=== PATIENT | male | born 1960 | race Caucasian/White ===

== ENCOUNTER 2017-11-11 23:29 | Emergency (ER) | payer SELFPAY ==
[2017-11-11 23:30] VITALS: PULSE 62; RESP 15; TEMP 36.4; O2SAT 97; BMI 54.6
--- NOTE | 2017-11-11 23:36 | ED.RN ---
UNABLE TO OBTAIN BP IN TRIAGE DESPITE SWITCHING ARMS, AND CHANGING BP CUFFS. SUDHIR MELISSA INFORMED. PT TO HAVE MANUAL PRESSURE CHECKED IN ROOM.
[2017-11-11 23:39] VITALS: BP 204/90
--- NOTE | 2017-11-11 23:47 | EKG12_ITS ---
Test Reason : HTN Blood Pressure : / mmHG Vent. Rate : 053 BPM Atrial Rate : 053 BPM P-R Int : 214 ms QRS Dur : 102 ms QT Int : 408 ms P-R-T Axes : 045 -02 013 degrees QTc Int : 382 ms Sinus bradycardia with 1st degree A-V block Otherwise normal ECG Confirmed by SAI GARZA, AMBROSE ([id number]), film and video editor ISMAEL GARZA ([id number]) on 11/14/2017 3:07:36 PM Referred By: JANELL Confirmed By:AMBROSE GIBBS MD
--- NOTE | 2017-11-11 23:47 | ED.VISSUMM ---
- ER Visit Summary Date of Service: 11/11/17 Chief Complaint: Elevated blood pressure History of Present Illness: The patient is a 57 M history of hypertension states that for the last several days his blood pressures been running higher than normal. He denies any specific severe headaches or chest pain. He is on 3 different blood pressure medications. He does not smoke. He drives long distance truck. He was concerned because it was higher than what he would like it to be tonight anyone came and have it evaluated. Physical Examination: Well-appearing middle-age male. Initial blood pressures were 90. Otherwise vital signs are stable afebrile. Pulse ox 97% on room air no signs of hypoxia. He is in no distress. HEENT exam unremarkable. Neck nontender no JVD. Lungs clear to auscultation bilaterally. Heart regular rate and rhythm no murmur. Rate in the 60s. Abdomen is soft and nontender. He is morbidly obese. He is moving all 4 extremities. Calves nontender. No edema or cords. Neurologically is awake and alert without focal motor deficits. Test Results: EKG shows sinus bradycardia rate of 53 with a first-degree AV block. Unchanged from prior EKG. BMP normal. Normal renal function creatinine is 0.9. Emergency Department Course and Treatment: Repeat exam patient is doing well. Currently his blood pressure is 192/102. He will take an extra blood pressure medication when he goes home. He is to log his blood pressures twice daily. And follow-up with either his primary care physician or an area hide handler for working with them to get his blood pressure under control his medications adjusted. Treatment Plan: [] Disposition: Discharge Impression: Acute on chronic hypertension This note was generated with [employer] dictation software. It may contain incorrect words, spelling, and punctuation that were not noted in review of the chart prior to signing ED Disposition - Plan for ED Patient: Disposition: Home or Assisted Living Chief Complaint: Hypertension Instructions: ED Hypertension Conf Out Of Control Referrals: Laura Ritchie MD [Primary Care Provider] - 5-7 Days Kenan Ribeiro MD [STAFF PHYSICIAN] - 1-2 Weeks Additional Instructions: Log your blood pressures at least twice daily at rest and follow-up with your primary care physician to have this evaluated to see if your doctor needs to adjust her blood pressure medications.
--- NOTE | 2017-11-11 23:50 | ED.DCSUM_ITS ---
- ER Visit Summary Date of Service: 11/11/17 Chief Complaint: Elevated blood pressure History of Present Illness: The patient is a 57 M history of hypertension states that for the last several days his blood pressures been running higher than normal. He denies any specific severe headaches or chest pain. He is on 3 different blood pressure medications. He does not smoke. He drives long distance truck. He was concerned because it was higher than what he would like it to be tonight anyone came and have it evaluated. Physical Examination: Well-appearing middle-age male. Initial blood pressures were 90. Otherwise vital signs are stable afebrile. Pulse ox 97% on room air no signs of hypoxia. He is in no distress. HEENT exam unremarkable. Neck nontender no JVD. Lungs clear to auscultation bilaterally. Heart regular rate and rhythm no murmur. Rate in the 60s. Abdomen is soft and nontender. He is morbidly obese. He is moving all 4 extremities. Calves nontender. No edema or cords. Neurologically is awake and alert without focal motor deficits. Test Results: EKG shows sinus bradycardia rate of 53 with a first-degree AV block. Unchanged from prior EKG. BMP normal. Normal renal function creatinine is 0.9. Emergency Department Course and Treatment: Repeat exam patient is doing well. Currently his blood pressure is 192/102. He will take an extra blood pressure medication when he goes home. He is to log his blood pressures twice daily. And follow-up with either his primary care physician or an area loading manager for working with them to get his blood pressure under control his medications adjusted. Treatment Plan: [] Disposition: Discharge Impression: Acute on chronic hypertension This note was generated with [employer] dictation software. It may contain incorrect words, spelling, and punctuation that were not noted in review of the chart prior to signing ED Disposition - Plan for ED Patient: Disposition: Home or Assisted Living Chief Complaint: Hypertension Instructions: ED Hypertension Conf Out Of Control Referrals: Laura Ritchie MD [Primary Care Provider] - 5-7 Days Kenan Ribeiro MD [STAFF PHYSICIAN] - 1-2 Weeks Additional Instructions: Log your blood pressures at least twice daily at rest and follow-up with your primary care physician to have this evaluated to see if your doctor needs to adjust her blood pressure medications.
[2017-11-12 00:45] VITALS: BP 192/102
[2017-11-12 00:59] LABS: Anion Gap 7 (5-15); BUN 19 mg/dL (7-18); BUN/Creat Ratio 20.7 RATIO (10-20); Calcium,Total 8.5 mg/dL (8.5-10.1); Chloride 105 mmol/L (98-107); Creatinine, Serum 0.92 mg/dL (0.70-1.30); EST Glomerular Filtration Rate 90 mL/min (>60); Est Glom Filt Rate - Afr Amer 109 mL/min (>60); Estimated Creatinine Clearance 85.71 ml/min; Glucose 112 mg/dL (74-106); Potassium 3.7 mmol/L (3.5-5.1); Sodium Level 141 mmol/L (136-145)
[2017-11-12 01:32] VITALS: RESP 16
== END 2017-11-12 01:35 | disposition home or self-care (01) ==
PROVIDERS: Emergency Provider Emergency Medicine; Family Provider Internal Medicine; PCP Internal Medicine
DX: I10 Essential (primary) hypertension (principal)
CPT/HCPCS: 36415; 80048; 93005; 99285

== ENCOUNTER → 2019-04-08 10:31 | Outpatient (CLI) | payer OTHER, SELFPAY ==
[2019-04-08 10:17] VITALS: BMI 54.1
--- NOTE | 2019-04-08 10:33 | RAD_ITS ---
STUDY: X-RAY - RIGHT KNEE REASON FOR EXAM: Male, 58 years old. Chronic knee pain TECHNIQUE: 3 view(s) of the knee. COMPARISON: None. FINDINGS: Normal visualized distal femur. Normal visualized proximal tibia and fibula. The knee is located. There is mild decreased joint space in the medial weightbearing compartment. However, this is within age expected range. Normal medial femorotibial compartment. Normal lateral femorotibial compartment. Normal patellofemoral articulation. The soft tissue structures are unremarkable. RAD/Knee 4 or More Views IMPRESSION: Minor medial compartment degenerative change. Electronically Signed: Jin Santos, at 17:00 EDT Tel , Service support ,
== END ==
PROVIDERS: Family Provider Internal Medicine; PCP Internal Medicine; Referring Provider Orthopaedic Surgery; Visit Provider Orthopaedic Surgery
DX: S83.91XA Sprain of unspecified site of right knee, initial encounter (principal)
CPT/HCPCS: 73564

== ENCOUNTER 2019-04-23 11:25 | Day surgery (SDC) | payer OTHER, SELFPAY ==
[2019-04-08 10:17] VITALS: BMI 54.1
[2019-04-23] VITALS (7 sets, daily range): BP systolic 118–137; BP diastolic 74–89; PULSE 55–62; RESP 16–18; TEMP 36.2–36.8; O2SAT 95–98; BMI 53.6
[2019-04-23] MEDS: Lactated Ringers 1,000 ML 75 ML IV ×2 (12:11→15:15)
[2019-04-23 12:16] LABS: Bedside Glucose 122 mg/dL (70-110)
[2019-04-23] MEDS: Cefazolin 2 GM in 0.9% Normal Saline 100 ML IV (14:26)
[2019-04-23] MEDS: Bupiv/Epi 0.5% Mpf 30 ML Vial (15:15)
--- NOTE | 2019-04-23 15:15 | DCINST_ITS ---
Discharge Diet: No Restrictions Weight Bearing Status: Weight bearing as tolerated Call your doctor if you observe: Fever of 101 or Higher, Shortness of breath, Chest pain, Calf discomfort, Uncontrolled pain Additional Instructions: Ice and elevate next 72 hours .keep dressing on clean and dry for 48 hours then may remove begin showering daily but do not submerge in tub or pool. After shower may apply Band-Aids . Encourage knee range of motion weightbearing as tolerated, use crutches until confident in knee then may discontinue. No strenuous activity. When not ambulating keep iced and elevated next 72 hours. Allergies/Adverse Reactions: Allergies No Known Allergies Allergy (Verified 04/23/19 11:34) Medications to take at Discharge Felodipine [Plendil] 5 mg PO DAILY 06/02/14 Lisinopril [Zestril] 40 mg PO DAILY 06/02/14 Carvedilol [Coreg] 25 mg PO BID 04/22/19 Aspirin [Aspirin, Baby] 81 mg PO BID 15 Days #30 tab 04/23/19 Hydrocodone Bitart/Apap 5-325 [Jefferson 5MG-325MG] 1 - 2 tablet PO Q4H PRN PRN 5 Days #50 tablet 04/23/19 The following prescriptions were given: Hydrocodone Bitart/Apap 5-325 [Jefferson 5MG-325MG] 1 - 2 tablet PO Q4H PRN PRN 5 Days #50 tablet PRN Reason: Pain Transmission Status: Sent to [facility] Primary Care Physician: Laura Ritchie MD [Primary Care Provider] - Test Results: Test results from this visit will be discussed in further detail at your follow- up appointment, if applicable. Please Follow Up With: Kwabena Flores DO - 2Weeks
[2019-04-23] MEDS: MethylPREDNISolone Acetate 80 MG/ML Vial (15:18)
[2019-04-23] MEDS: Bupivacaine 0.5% PF 10 ML VIAL (15:18)
[2019-04-23] MEDS: Morphine 4 MG/ML Syringe (15:18)
--- NOTE | 2019-04-23 15:19 | OP.PCM_ITS ---
Report of Operation Date of Procedure: 04/23/19 Description of Surgical Findings:: Preop diagnosis: Right knee medial meniscus tear DJD Postoperative diagnosis: Need for cartilage wear medial femoral condyle diffuse complex tear medial meniscus horn and body small radial tear posterior root lateral meniscus grade 3 cartilage wear patella to lateral compartment, synovitis Procedure: Right knee arthroscopic partial medial meniscectomy chondroplasty partial lateral meniscectomy tricompartment synovectomy Anesthesia: General Estimated blood loss: 5 mL Tourniquet time: 22 minutes 325 mmHg Complications: none Indication for procedure: 80-year-old male patient who has had ongoing knee pain with mechanical symptoms after an injury at work did have MRI evidence of DJD as well as a meniscal tear on the medial side the patient did wish to proceed with an elective arthroscopic surgery to attempt to alleviate the symptoms. Risk benefits and alternatives of the procedure were reviewed including risk of bleeding infection nerve artery tissue damage need for further surgery in secondary to arthritic change in the knee continued pain and expected postoperative course. Procedure: The patient was met in the preoperative holding area. The operative extremity was identified by both patient and physician and family and marked. Patient was brought back to the operating room on a wheeled cart and transferred to the operating table in the supine position. Anesthesia was started. A well- padded tourniquet was placed on the operative extremity. A lower extremity leg mathews was secured to the operative extremity. The contralateral extremity was well-padded and the end of the bed was flexed to 90 degrees. The patient was prepped and draped in the usual sterile fashion. A timeout was called to ensure the proper patient, procedure, and extremity were being contemplated. 0.5% Marcaine with epinephrine was injected into the planned incisional areas under the skin only. An Esmarch was used to exsanguinate the extremity and the tourniquet was inflated. An 11 blade scalpel was used to make a stab incision in the anterior lateral portal. The arthroscope was inserted into the intercondylar notch and inflow and outflow tubes were attached. Arthroscopic visualization began. The medial compartment was entered. An 18-gauge spinal needle was used to establish the placement for anterior medial portal. An 11 blade scalpel was used to make a stab incision. Blunt probe was inserted followed by a meniscal probe. Immediately there is noted to be high-grade cartilage wear down to bone of the medial femoral condyle with loose cartilage flaps chondroplasty was performed of the periphery of the medial meniscus was evaluated it did have multiple flipped components of the tear which were debrided with 3 5 full-radius shaver the ACL was but what was intact with synovitis there was extensive synovitis throughout the knee which required debridement to allow for visualization. The lateral compartment was entered small radial tearing posterior root lateral meniscus with the use of arthroscopic biting instruments and charlotte and [employer]throCare wand a partial lateral meniscectomy was performed. The arthroscope was switched to the medial portal to complete the procedure. The medial and lateral gutters were inspected and were free of loose bodies. The patellofemoral joint was inspected. 3 cartilage wear of the patella. There was good patellar tracking. The knee was thoroughly irrigated and drained. An intra-articular injection with 5 cc 0.5% Marcaine plain 4 mg of morphine and 40 mg of Depo-Medrol was injected intra- articularly. The arthroscope was removed the portals were closed with 3-0 nylon arthroscopic stitches. Followed by Xeroform 4 x 4's ABDs web roll and an Kaveh wrap. The tourniquet was let down and the drapes were removed. All counts were correct. The patient was brought back to the PACU in stable condition.
[2019-04-23 15:40] LABS: Bedside Glucose 99 mg/dL (70-110)
--- NOTE | 2019-04-26 11:54 | HP.PCM_ITS ---
History and Physical Date of Admission: 04/23/19 Intake Vital Signs 04/08/19 Height 5 ft 8 in 04/08/19 Weight: 356 lb 04/08/19 Body Mass Index (BMI) 54.1 Intake Visit Reasons: right knee Chief Complaint: unable to void post op Accompanied by: Is patient in pain?: Yes Pain scale (1-10): 5 Allergies No Known Allergies Allergy (Verified 11/11/17 23:29) Medications Atenolol [Tenormin (beta vania)] 100 mg PO BID 06/02/14 [History Confirmed 04/08/19] Felodipine [Plendil] 5 mg PO DAILY 06/02/14 [History Confirmed 04/08/19] Lisinopril [Zestril] 40 mg PO DAILY 06/02/14 [History Confirmed 04/08/19] [facility] Medical History (Updated 04/08/19 @ 10:23 by Rocio Chaudhari) HTN (hypertension) (Chronic) Social History (Updated 04/08/19 @ 12:40 by Kwabena Flores DO) Smoking Status: Never smoker HPI right knee: Details: Parts of this documentation were recorded by a scribe, this documenta tion accurately reflects the service provided and the decisions made by me, Kwabena Flores DO 04/08/19 0751. CEDRIC THRASHER is a [address] [facility] patient here today for right knee injury. DOI: 02/19/19. 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 Denies numbness, tingling or other associated symptoms. Patient is having medial sided knee pain and posterior knee pain along with some radiating pardo pain and radiating thigh pain. Had an MRI of the right knee done 03/29/19. Had instant pop at time of injury. STates he has been off work since last monday. Denies any previous injuries or pain. ROS Const Reports system reviewed and no additional complaints, except as docu Eyes Reports system reviewed and no additional complaints, except as docu ENT Reports system reviewed and no additional complaints, except as docu Card Reports system reviewed and no additional complaints, except as docu Resp Reports system reviewed and no additional complaints, except as docu GI Reports system reviewed and no additional complaints, except as docu Reports system reviewed and no additional complaints, except as docu Musc Reports system reviewed and no additional complaints, except as docu, Reports as per HPI Skin/Breast Reports system reviewed and no additional complaints, except as docu Neuro Yes system reviewed and no additional complaints, except as docu Psych Reports system reviewed and no additional complaints, except as docu Endo Reports system reviewed and no additional complaints, except as docu Riot/Lymph Reports system reviewed and no additional complaints, except as docu Aller/Immun Reports system reviewed and no additional complaints, except as docu Ortho Exam Right Knee Date of injury: 02/19/19 Skin/Wound: No erythema, No ecchymosis, Yes swelling Homans Sign: No 2+: Effusion Knee ROM: Yes ROM-Extension -20 to 0, No ROM-Flexion 0-140 Examination: Yes Med jt line tenderness, No Lat jt line tenderness, Yes Deejay's Test Stability: NML: Anterior Drawer, NML: Posterior Drawer Patella Grind: No Supplemental Info 04/08/2019 x-ray right knee: Moderate medial joint space narrow mild patellofemoral spurring MRI on disc: complex medial meniscal tear, DJD, bone marrow edema and Moderate cartilage loss. Assessment & Plan Problems 1. Sprain of medial collateral ligament of right knee, initial encounter S83.411A Plan Obtained X-rays of patient's right knee. Personally reviewed x-rays. There is no obvious fracture, dislocation, or lucency noted. Reviewed patients right knee MRI. Patient educated that he does have a meniscus tear of his right knee and he also has extensive swelling of his knee and bone bruise along with OA of his right knee. Educated that surgical options are meniscectomy for the meniscus tear. Patient educated that he may still have pain d/t his OA and he is unable to have a TKA d/t his weight. Educated that he will be off work for 4-8 weeks after the medial meniscectomy. Patient educated that the meniscus does not heal on its own and will keep catching. Denies any heart or lung problems. Reviewed the pre-operative plans with the patient. Risks and benefits of the procedure were fully explained, including but not limited to infection, neurovascular injury, continued pain, arthritis, stiffness, need for further surgery, re- injury, DVT, PE, general risks of anesthesia, and loss of limb or life. The patient understands all the risks and does wish to proceed with written consent.Right knee arthroscopic medial meniscectomy. Recommend for patient to be off work until 4-8 weeks post op. We will send a C-9 for surgery request. Follow up 2 weeks post op or sooner if pain, swelling, numbness or associated symptoms, or concerns develop. All questions answered. Patient in agreement of plan. Orders Orders: Knee 4 or More Views Today S83.91XA Coding Level of Care Code Off vis,est,level 3 Diagnoses Sprain of medial collateral ligament of right knee, initial encounter S83.411A ??Encounter type: initial encounter ??Involved ligament of knee: medial collateral ligament I have re-examined the patient. There are no clinical changes since date of exam
== END 2019-04-23 18:54 | disposition home or self-care (01) ==
LOC: SDC 11:27 → AC 11:28
PROVIDERS: Family Provider Internal Medicine; PCP Internal Medicine; Referring Provider Orthopaedic Surgery; Visit Provider Orthopaedic Surgery
PROC: (CPT 29870; principal; 2019-04-23 13:10)
DX: S83.241A Other tear of medial meniscus, current injury, right knee, initial encounter (principal); S83.411A Sprain of medial collateral ligament of right knee, initial encounter; M17.11 Unilateral primary osteoarthritis, right knee; W10.8XXA Fall (on) (from) other stairs and steps, initial encounter; Y93.9 Activity, unspecified; Y92.89 Other specified places as the place of occurrence of the external cause; Y99.9 Unspecified external cause status; Z87.891 Personal history of nicotine dependence; G47.30 Sleep apnea, unspecified
CPT/HCPCS: 01400; 29880; 82962; J7120; J2405

== ENCOUNTER → 2025-05-15 | Outpatient (CLI) | payer MEDICAID, SELFPAY ==
--- NOTE | 2025-05-15 07:48 | ECHOCS_ITS ---
Reason For Study Reason For Study: ARRYTHMIA Procedure This was a 2D Doppler, Color Flow transthoracic echocardiogram. The study was technically difficult. Contrast injection was performed. Exam performed in department. Left Ventricle Normal LV size. The left ventricular ejection fraction is 55 %. No regional wall motion abnormalities noted. Right Ventricle Normal RV size. Normal systolic function. Atria The left atrium is not well visualized. The right atrium is not well visualized. Mitral Valve Mitral valve not well visualized. Tricuspid Valve The tricuspid valve is not well visualized. Aortic Valve The aortic valve is not well visualized. Pericardium/Pleural No pericardial effusion. Medication 22 gauge I.V. with prn adaptor inserted into right arm. Diluted definity 4ml given slow IV push to enhance endocardial definition. MMode/2D Measurements & Calculations LVIDd: 5.6 cm IVSd: 1.0 cm Ao root diam: 4.1 cm LVIDs: 4.2 cm LVPWd: 1.2 cm FS: 25.9 % LAV(MOD-sp4): 44.9 ml LA A4 area: 16.6 cm2 LA dimension(2D): 3.7 cm RA A4 area: 13.0 cm2 Time Measurements MV dec time: 0.28 sec Doppler Measurements & Calculations MV E max skinny: 55.0 cm/sec Lat Peak E' Skinny: 11.6 cm/sec Med Peak E' Skinny: 9.6 cm/sec MV A max skinny: 63.9 cm/sec E/E' lat: 4.8 E/E' med: 5.8 MV E/A: 0.86 MV V2 max: 57.1 cm/sec MV dec slope: 196.0 cm/sec2 Ao V2 max: 117.8 cm/sec MV max P.3 mmHg Ao max P.6 mmHg MV V2 mean: 34.1 cm/sec Ao V2 mean: 80.6 cm/sec MV mean P.54 mmHg Ao mean P.0 mmHg MV V2 VTI: 21.5 cm Ao V2 VTI: 23.3 cm AV (velocity ratio): 0.83 LV V1 max: 88.3 cm/sec PA V2 max: 94.4 cm/sec LV V1 max P.1 mmHg PA V2 mean: 65.7 cm/sec LV V1 mean P.1 mmHg LV V1 mean: 68.6 cm/sec LV V1 VTI: 19.3 cm ECHO/Echo Complete W/ Contrast Interpretation Summary The left ventricular ejection fraction is 55 %. Normal LV size. Contrast injection was performed. The study was technically difficult. The stud y was technically limited. Ordering Physician: Joon Light Referring Physician: Joon Light Performed By: Michelle Courtney RCS
== END | disposition home or self-care (01) ==
LOC: CVS 07:48
PROVIDERS: PCP Internal Medicine; Referring Provider Internal Medicine Cardiovascular Disease; Visit Provider Internal Medicine Cardiovascular Disease
DX: R06.09 Other forms of dyspnea (principal)
CPT/HCPCS: 93306; Q9957; A4216; C8929